=== PATIENT | male | born 1985 ===

== ENCOUNTER 2019-01-09 19:49 | Emergency (ER) | payer SELFPAY ==
[~2019-01-09] VITALS: Ht 182.9 cm; Wt 79.0 kg
[2019-01-09 19:51] VITALS: BP 119/69
[2019-01-09] MEDS ORDERED: HYDROcodone/acetaminophen 10/325mg tab PO ONE (21:00)
[2019-01-09] MEDS ORDERED: sulfamethoxazole/trimethoprim DS (800/160mg) tablet PO ONE (21:05)
[2019-01-09] MEDS ORDERED: cephalexin 250mg capsule PO ONE (21:05)
[2019-01-09] MEDS ORDERED: SULF1TAB49 PO (21:40)
[2019-01-09] MEDS ORDERED: CEPH-572 PO (21:40)
== END 2019-01-09 22:06 | disposition home or self-care (01) ==
LOC: ER 19:50
DX: L02.415 Cutaneous abscess of right lower limb (principal); Z88.5 Allergy status to narcotic agent
CPT/HCPCS: 10060; 99284